=== PATIENT | male | born 2000 | race African-American/Black ===

== ENCOUNTER → 2021-08-24 | Outpatient (CLI) | payer OTHER | END | disposition home or self-care (01) | LOC: RADMN 09:22 | PROVIDERS: ATTEND Podiatrist Foot & Ankle Surgery | DX: M20.40 Other hammer toe(s) (acquired), unspecified foot (principal); M25.376 Other instability, unspecified foot | CPT/HCPCS: 73718 ==

== ENCOUNTER 2021-12-19 21:42 | Emergency (ER) | payer OTHER ==
[~2021-12-19] VITALS: Ht 190.5 cm; Wt 79.5 kg
[2021-12-19] MEDS ORDERED: IBUPROFEN 800 MG TABLET PO ONE (22:00)
[2021-12-19] MEDS ORDERED: ACETAMINOPHEN 325 MG TABLET PO ONE (22:00)
[2021-12-19] MEDS ORDERED: PERCT PO (23:54)
[2021-12-19] MEDS ORDERED: IBUP-2070 PO (23:55)
[2021-12-20] VITALS: BP 133/78
[2021-12-20] MEDS ORDERED: IBUP-2070 PO (09:10)
[2021-12-20] MEDS ORDERED: PERCT PO (09:10)
== END 2021-12-20 02:05 | disposition home or self-care (01) ==
LOC: EMS 21:47
DX: S83.92XA Sprain of unspecified site of left knee, initial encounter (principal); V86.96XA Unspecified occupant of dirt bike or motor/cross bike injured in nontraffic accident, initial encounter; Y93.89 Activity, other specified; Y92.89 Other specified places as the place of occurrence of the external cause; Y99.8 Other external cause status
CPT/HCPCS: 29505; 99284

== ENCOUNTER 2021-12-31 14:12 | Emergency (ER) | payer OTHER ==
[~2021-12-31] VITALS: Ht 190.5 cm; Wt 81.8 kg
[~2021-12-31 14:12] MED LIST: IBUP-2070 PO; PERCT PO
[2021-12-31 14:32] VITALS: BP 139/90
[2021-12-31] MEDS ORDERED: ACET-66 PO (15:57)
[2021-12-31] MEDS ORDERED: LIDO700A15 TP (15:57)
== END 2021-12-31 16:06 | disposition home or self-care (01) ==
LOC: EMS 14:13
DX: S86.812A Strain of other muscle(s) and tendon(s) at lower leg level, left leg, initial encounter (principal); V29.99XA Rider (driver) (passenger) of other motorcycle injured in unspecified traffic accident, initial encounter; Y93.89 Activity, other specified; Y92.89 Other specified places as the place of occurrence of the external cause; Y99.8 Other external cause status
CPT/HCPCS: 99283

== ENCOUNTER 2023-04-13 18:19 | Emergency (ER) | payer OTHER ==
[~2023-04-13] VITALS: Ht 190.5 cm; Wt 104.5 kg
[~2023-04-13 18:19] MED LIST changes: +ACET-66 PO; -IBUP-2070 PO; +LIDO700A15 TP; -PERCT PO
[2023-04-13 18:25] VITALS: TEMP 98.2
[2023-04-13 23:00] VITALS: BP 148/70; PULSE 90; RESP 16
[2023-04-13] MEDS ORDERED: KETOROLAC TROMETHAMINE 30 MG/ML VIAL IM ONE (23:30)
[2023-04-13] MEDS ORDERED: NAPR-1025 PO (23:33)
[2023-04-13] MEDS ORDERED: PERCT PO (23:33)
[2023-04-13] MEDS: HYDROCODONE/ACETAMINOPHEN 5-325 MG TABLET PO ONE (23:38)
[2023-04-13] MEDS: KETOROLAC TROMETHAMINE 60 MG/2 ML VIAL IM ONE (23:41)
== END 2023-04-13 23:57 | disposition home or self-care (01) ==
LOC: EMS 18:20
DX: S83.92XA Sprain of unspecified site of left knee, initial encounter (principal); S93.402A Sprain of unspecified ligament of left ankle, initial encounter; V89.2XXA Person injured in unspecified motor-vehicle accident, traffic, initial encounter; Y93.89 Activity, other specified; Y92.89 Other specified places as the place of occurrence of the external cause; Y99.8 Other external cause status
CPT/HCPCS: 99284; 72040; 72100; 73562; 73590; 73610; 96372; J1885

== ENCOUNTER 2024-01-06 12:32 | Inpatient (IN) | payer OTHER ==
[~2024-01-06] VITALS: Ht 193 cm; Wt 97.7 kg
[~2024-01-06 12:32] MED LIST changes: -ACET-66 PO; -LIDO700A15 TP; +NAPR-1025 PO; +PERCT PO
[2024-01-06 13:43] VITALS: TEMP 98.2
[2024-01-06] MEDS: LevETIRAcetam 1,000 MG in DEXTROSE 5%-WATER 100 ML IV ONE (14:21)
[2024-01-06 14:27] LABS: BASOPHILS % (AUTO) 0.1 % (0.0-2.0); EOSINOPHILS % (AUTO) 0.1 % (1.0-6.0); HEMATOCRIT 50.6 % (41-53); HEMOGLOBIN 16.9 g/dL (13.5-17.5); LYMPHOCYTES # (AUTO) 0.7 K/uL (1.0-4.8); LYMPHOCYTES % (AUTO) 9.1 % (22.0-44.0); MEAN CORPUSCULAR HEMOGLOBIN 32.5 pg (26.0-34.0); MEAN CORPUSCULAR HGB CONC 33.4 G/dL (31.0-37.0); MEAN CORPUSCULAR VOLUME 97 fL (80-100); MONOCYTES # (AUTO) 0.8 K/uL (0.1-1.0); MONOCYTES % (AUTO) 10.7 % (2.0-9.0); NEUTROPHILS # (AUTO) 5.8 K/uL (1.8-7.7); PLATELET COUNT (AUTO) 211 K/uL (150-450); RED BLOOD CELL COUNT(AUTO) 5.21 MIL/uL (4.50-5.90); RED CELL DISTRIBUTION WIDTH 13.7 % (11.5-14.5); WHITE BLOOD COUNT (AUTO) 7.2 K/uL (4.5-11.0)
[2024-01-06 14:33] LABS: ANION GAP 11 mmol/L (8-16); CALCIUM, TOTAL 9.1 mg/dL (8.8-10.5); CARBON DIOXIDE 26 mmol/L (22-29); CHLORIDE 99 mmol/L (98-107); CREATININE 0.85 mg/dL (0.60-1.30); GLOMERULAR FILTR. RATE CALC > 60 mL/min (>60); GLUCOSE,RANDOM 100 mg/dL (70-110); POTASSIUM 3.6 mmol/L (3.5-5.1); SODIUM SERUM 136 mmol/L (136-145); UREA NITROGEN, BLOOD 9 mg/dL (7-18)
[2024-01-06 14:34] LABS: ALCOHOL, BLOOD (SERUM) < 3 mg/dL (0-10)
[2024-01-06] MEDS: SODIUM CHLORIDE 0.9% 1,000 ML IV ONE (14:39)
[2024-01-06 14:40] LABS: TROPONIN I-HIGH SENSITIVITY 5 ng/L (<76)
[2024-01-06] MEDS: LORazepam 2 MG/ML VIAL IVP ONE (14:40)
[2024-01-06 14:49] LABS: B-TYPE NATRIURETIC PEPTIDE 8 pg/mL (0-100)
[2024-01-06 14:57] LABS: ALANINE AMINOTRANSFERASE 36 U/L (12-78); ALBUMIN 4.1 g/dL (3.4-5.0); ALKALINE PHOSPHATASE 98 U/L (46-116); ASPARTATE AMINOTRANSFERASE 41 U/L (15-37); BILIRUBIN,TOTAL 1.7 mg/dL (0.1-1.0); CREATINE KINASE, TOTAL ONLY 597 U/L (39-308); TOTAL PROTEIN, SERUM 7.9 g/dL (6.4-8.2)
[2024-01-06 14:58] LABS: APPEARANCE,URINE CLEAR (CLEAR); BILIRUBIN,URINE NEGATIVE (NEGATIVE); COLOR,URINE LIGHT ORANGE (YELLOW); GLUCOSE, URINE (UA) NEGATIVE (NEGATIVE); KETONES,URINE 40-60 mg/dL (NEGATIVE); LEUKOCYTE ESTERASE ,URINE NEGATIVE (NEGATIVE); NITRATE,URINE NEGATIVE (NEGATIVE); OCCULT BLOOD,URINE SMALL (NEGATIVE); PROTEIN,URINE 100-200,SEE CONFIRM mg/dL (NEGATIVE); SPECIFIC GRAVITIY, URINE 1.026 (1.003-1.030)
[2024-01-06 15:06] LABS: ALCOHOL, URINE DRUG SCREEN NEGATIVE (NEGATIVE); AMPHET/METH SCREEN,URINE NEGATIVE (NEGATIVE); BARBITURATE SCREEN, URINE NEGATIVE (NEGATIVE); BENZODIAZEPINES SCREEN,URINE POSITIVE (NEGATIVE); CANNABINOID SCREEN,URINE POSITIVE (NEGATIVE); COCAINE SCREEN,URINE NEGATIVE (NEGATIVE); METHADONE SCREEN, URINE NEGATIVE (NEGATIVE); OPIATE SCREEN,URINE POSITIVE (NEGATIVE); PHENCYCLIDINE SCREEN,URINE NEGATIVE (NEGATIVE)
[2024-01-06 15:34] LABS: BACTERIA,URINE Few /HPF (None Seen); SQUAMOUS EPITHELIAL CELL,UR Rare /LPF (None Seen); SULFOSALICYLIC ACID,URINE 2+ (Negative); WBC,URINE 0-2 /HPF (0-5)
[2024-01-06] MEDS ORDERED: OxyCODONE HCL/ACETAMINOPHEN 5-325 MG TABLET PO PRN ×2 (18:45)
[2024-01-06] MEDS ORDERED: ONDANSETRON HCL 4 MG/2 ML VIAL IVP PRN (18:45)
[2024-01-06] MEDS ORDERED: 0.9% SODIUM CHLORIDE 10 ML SYRINGE IVP PRN (18:45)
[2024-01-06] MEDS ORDERED: ChlordiazePOXIDE HCL 25 MG CAPSULE PO PRN (19:00)
[2024-01-06] MEDS: LevETIRAcetam 500 MG TABLET PO SCH (20:16)
[2024-01-06] MEDS: HEPARIN SODIUM,PORCINE 5,000 UNITS/ML VIAL SQ SCH (20:17)
[2024-01-06] MEDS: DOCUSATE SODIUM 100 MG CAPSULE PO SCH (20:17)
[2024-01-06 20:30] VITALS: BP 129/89; PULSE 72; RESP 18; O2SAT 98
[2024-01-07] MEDS ORDERED: ChlordiazePOXIDE HCL 25 MG CAPSULE PO PRN (07:00)
[2024-01-07] MEDS ORDERED: PANTOPRAZOLE SODIUM 40 MG/VIAL IVP SCH (09:00)
[2024-01-07] MEDS ORDERED: ChlordiazePOXIDE HCL 25 MG CAPSULE PO SCH (09:00)
[2024-01-09] MEDS ORDERED: ChlordiazePOXIDE HCL 10 MG CAPSULE PO PRN (07:00)
[2024-01-09] MEDS ORDERED: ChlordiazePOXIDE HCL 10 MG CAPSULE PO SCH (09:00)
[2024-01-10] MEDS ORDERED: ChlordiazePOXIDE HCL 10 MG CAPSULE PO PRN (07:00)
== END 2024-01-07 20:33 | disposition left against medical advice (07) | DRG 101 ==
LOC: EMS 12:32 → EDH 18:07
PROVIDERS: ADMIT Internal Medicine; ATTEND Internal Medicine
DX: G40.89 Other seizures (principal); F10.939 Alcohol use, unspecified with withdrawal, unspecified; F13.939 Sedative, hypnotic or anxiolytic use, unspecified with withdrawal, unspecified; Z53.29 Procedure and treatment not carried out because of patient's decision for other reasons; Y90.0 Blood alcohol level of less than 20 mg/100 ml; Z79.899 Other long term (current) drug therapy
CPT/HCPCS: 70450; 71045; 72125; 80048; 80076; 80307; 81001; 81002; 82550; 83735; 83880; 84484; 85025; 93005; 99291; G0378; G0480; J0712; J1644; J2060; J7030; J7060; 36415-L1; 36415-TC